=== PATIENT | male | born 1955 | race Caucasian/White ===

== ENCOUNTER 2017-02-04 09:26 | Outpatient (CLI) | payer OTHER ==
--- NOTE | 2017-02-04 10:52 | RAD ---
PA AND LATERAL VIEWS OF CHEST: Date: 02/04/17 HISTORY: General exam without abnormal findings. FINDINGS: The heart size is normal. The lungs are well expanded without focal areas of consolidation, pneumotho rax, mass, or pleural effusions. There are mild degenerative changes in the spine. IMPRESSION: No significant abnormalities are identified. POS: [facility]
== END 2017-02-04 09:27 | disposition home or self-care (01) ==
LOC: RAD 09:26
PROVIDERS: ATTEND Family Medicine
DX: Z00.00 Encounter for general adult medical examination without abnormal findings (principal)
CPT/HCPCS: 71020

== ENCOUNTER 2021-02-10 12:17 | Outpatient (CLI) | payer OTHER | END 2021-02-10 12:18 | disposition home or self-care (01) | LOC: BICRAD 12:17 | PROVIDERS: ATTEND Nurse Practitioner Family | DX: M47.812 Spondylosis without myelopathy or radiculopathy, cervical region (principal) | CPT/HCPCS: 72050 ==

== ENCOUNTER 2024-01-09 11:53 | Outpatient (CLI) | payer MEDICARE, OTHER | END 2024-01-09 11:54 | disposition home or self-care (01) | PROVIDERS: ATTEND Psychiatry & Neurology Neurology | DX: H53.2 Diplopia (principal); R00.0 Tachycardia, unspecified; R00.1 Bradycardia, unspecified | CPT/HCPCS: 93225; 93226 ==